=== PATIENT | male | born 2000 | race Hispanic/Latino ===

== ENCOUNTER 2021-04-27 08:39 | Emergency (ER) | payer OTHER ==
[~2021-04-27] VITALS: Ht 167.6 cm; Wt 122.5 kg
[~2021-04-27 08:39] MED LIST: AUGMENTIN 500-1 EACH PO
[2021-04-27] MEDS ORDERED: MORPHINE SULFATE INJ 4 MG/ML INJ 1ML IV NR (08:44)
[2021-04-27] MEDS ORDERED: ONDANSETRON HCL INJ 2MG/ML 2ML 2 MG/ML VIAL IV NR (08:44)
[2021-04-27] MEDS ORDERED: SODIUM CHLORIDE 0.9% 1000ML 1,000 ML IV STA (08:44)
[2021-04-27 09:18] LABS: BASOPHILS # (AUTO) 0.1 (0.0-0.1); BASOPHILS % 0.3 % (0.0-1.0); EOSINOPHILS # (AUTO) 0.1 (0.0-0.4); EOSINOPHILS % 0.5 % (0.0-6.0); HEMATOCRIT 48.4 % (38.2-49.6); HEMOGLOBIN 16.1 g/dL (14.0-18.0); LYMPHOCYTES % 6.8 % (18.0-39.1); MEAN CORPUSCULAR HEMOGLOBIN 28.8 pg (28-32); MEAN CORPUSCULAR HGB CONC 33.3 g/dL (31-35); MEAN CORPUSCULAR VOLUME 86.4 fL (81-99); MONOCYTES # (AUTO) 0.7 (0.2-0.8); NEUTROPHILS # (AUTO) 12.8 (2.1-6.9); NEUTROPHILS % 87.1 % (38.7-80.0); PLATELET COUNT 282 x10e3/uL (140-360); RED CELL DISTRIBUTION WIDTH 13.7 % (11.7-14.4)
[2021-04-27 09:35] LABS: CLARITY,URINE CLEAR (CLEAR); COLOR,URINE YELLOW (YELLOW); KETONES,URINE NEGATIVE (NEGATIVE); LEUKOCYTE ESTERASE ,URINE NEGATIVE (NEGATIVE); NITRITE,URINE NEGATIVE (NEGATIVE); PROTEIN,URINE DIPSTICK 1+ (NEGATIVE); URINE UROBILINOGEN 0.2 mg/dL (0.2 - 1)
[2021-04-27 09:49] LABS: ALBUMIN 4.1 g/dL (3.5-5.0); ALBUMIN/GLOBULIN RATIO 1.1 (0.8-2.0); ANION GAP 12.9 mmol/L (8-16); CREATININE, SERUM 0.99 mg/dL (0.72-1.25); POTASSIUM 3.9 mmol/L (3.5-5.1)
[2021-04-27] MEDS ORDERED: SODIUM CHLORIDE 0.9% 50ML 50 ML ONE ×2 (09:52→12:07)
[2021-04-27] MEDS ORDERED: IOPAMIDOL 370 MG/ML 200 ML INFUS..BTL INJ ONE (09:53)
[2021-04-27 09:57] LABS: WBC,URINE (MAN) 0-5 /HPF (0-5)
[2021-04-27 09:58] LABS: BACTERIA,URINE FEW /HPF; EPITHELIAL CELLS,URINE RARE /LPF
[2021-04-27] MEDS ORDERED: PIPERACILLIN/TAZOBACTAM 3.375 GM in SODIUM CHLORIDE 0.9% 50ML 50 ML IV SCH (12:00)
[2021-04-27] MEDS ORDERED: ACETAMINOPHEN 325 MG TAB PO PRN (12:00)
[2021-04-27] MEDS ORDERED: ACETAMINOPHEN 325 MG TAB ONE (12:06)
[2021-04-27] MEDS ORDERED: PIPERACILLIN/TAZOBACTAM 3.375 GM VIAL ONE (12:07)
[2021-04-27] MEDS ORDERED: AUGMENTIN 875-1 EACH PO (12:55)
[2021-04-27] MEDS ORDERED: ONDANSETRON ODT4 MG PO (12:55)
[2021-04-27] MEDS ORDERED: TYLENOL # 31 EA PO (12:55)
[2021-04-27 13:02] VITALS: BP 123/71
== END 2021-04-27 13:13 | disposition home or self-care (01) ==
LOC: ER 09:23
DX: R10.33 Periumbilical pain (principal); R10.84 Generalized abdominal pain; R50.9 Fever, unspecified; R11.2 Nausea with vomiting, unspecified
CPT/HCPCS: 36415; 74177; 80053; 81001; 83605; 83690; 85025; 87040; 99284; J2270; J2405; J2543; J7030; Q9967